=== PATIENT | male | born 1990 | race Caucasian/White ===

== ENCOUNTER → 2018-03-06 14:06 | Outpatient (CLI) | payer MEDICARE, MEDICAID, SELFPAY ==
[2018-03-06 15:02] LABS: Basophils # 0.1 K/mm3 (0-0.2); Basophils % 0.8 % (0.1-2.0); Eosinophils # 0.3 K/mm3 (0.0-0.4); Eosinophils % 3.2 % (0.1-12.0); Hematocrit 49.3 % (42.0-52.0); Hemoglobin 15.9 g/dL (14.1-18.0); Lymphocytes # 2.4 K/mm3 (0.7-4.5); Lymphocytes % 24.4 K/mm3 (10-50); Mean Corpuscular HGB Conc 32.2 g/dL (31.8-35.4); Mean Corpuscular Hemoglobin 28.6 pg (27.0-31.2); Mean Corpuscular Volume 88.8 fl (80-94); Mean Platelet Volume 8.6 fl (7.4-10.4); Monocytes # 0.5 K/mm3 (0.1-1.0); Monocytes % 4.7 % (1.7-9.3); Neutrophils # 6.6 K/mm3 (1.8-7.8); Neutrophils % 66.9 % (37.0-80.0); Platelet Count 290 K/mm3 (142-424); Red Blood Count 5.55 M/mm3 (4.60-6.20); Red Cell Distribution Width 11.7 % (11.5-17.5); White Blood Count 9.9 K/mm3 (4.8-10.8)
[2018-03-06 15:10] LABS: Hemoglobin A1C 5.2 % (0.0-7.0)
[2018-03-06 15:18] LABS: Alanine Aminotransferase 17 U/L (12-78); Albumin/Globulin Ratio 1.1 (1.1-1.8); Alkaline Phosphatase 74 U/L (46-116); Anion Gap 9.1 mEq/L (5-15); Aspartate Amino Transferase 15 U/L (15-37); Bilirubin,Total 0.9 mg/dL (0.2-1.0); Blood Urea Nitrogen 5 mg/dL (7-18); Calcium 9.4 mg/dL (8.5-10.1); Carbon Dioxide 31 mmol/L (21.0-32.0); Chloride 105 mmol/L (98-107); Chol/HDL Ratio 5.5 (1-3.5); Cholesterol 215 mg/dL (140-200); Estimated Glomerular Filt Rate 118 ml/min (>60); GFR (African American) 143 ML/MIN (>60); Globulin 3.8 gm/dl (1.3-3.2); Glucose 99 mg/dL (74-106); HDL Cholesterol 39 mg/dL (27-67); LDL Cholesterol 140 mg/dL (0-130); Potassium 4.1 mmoL/L (3.5-5.1); Sodium 141 mmol/L (136-145); Thyroid Stimulating Hormone 1.08 uIU/ml (0.358-3.740); Total Protein,Serum 7.8 gm/dL (6.4-8.2); Triglycerides 180 mg/dL (30-200); VLDL Cholesterol 36 mg/dL (0-40)
[2018-03-08 17:15] LABS: Prolactin 22.4 ng/mL (4.0-15.2)
== END ==
PROVIDERS: Visit Provider Nurse Practitioner Psychiatric/Mental Health
DX: F34.9 Persistent mood [affective] disorder, unspecified (principal); Z79.899 Other long term (current) drug therapy
CPT/HCPCS: 36415; 80053; 80061; 83036; 84146; 84443; 85025

== ENCOUNTER → 2019-05-14 10:56 | Outpatient (CLI) | payer MEDICARE, OTHER, MEDICAID, SELFPAY ==
[2019-05-14 11:32] LABS: Basophils # 0.1 K/mm3 (0-0.2); Basophils % 0.8 % (0.1-2.0); Eosinophils # 0.3 K/mm3 (0.0-0.4); Eosinophils % 3.3 % (0.1-12.0); Hematocrit 49.7 % (42.0-52.0); Hemoglobin 15.8 g/dL (14.1-18.0); Lymphocytes # 2.7 K/mm3 (0.7-4.5); Lymphocytes % 31.4 % (10-50); Mean Corpuscular HGB Conc 31.9 g/dL (31.8-35.4); Mean Corpuscular Hemoglobin 29.1 pg (27.0-31.2); Mean Corpuscular Volume 91.2 fl (80-94); Mean Platelet Volume 7.5 fl (7.4-10.4); Monocytes # 0.4 K/mm3 (0.1-1.0); Monocytes % 4.9 % (1.7-9.3); Neutrophils # 5.1 K/mm3 (1.8-7.8); Neutrophils % 59.5 % (37.0-80.0); Platelet Count 293 K/mm3 (142-424); Red Blood Count 5.45 M/mm3 (4.60-6.20); Red Cell Distribution Width 12.4 % (11.5-17.5); White Blood Count 8.5 K/mm3 (4.8-10.8)
[2019-05-14 12:08] LABS: Alanine Aminotransferase 15 U/L (12-78); Albumin Level 3.7 gm/dL (3.4-5.0); Alkaline Phosphatase 75 U/L (46-116); Anion Gap 9.4 mEq/L (5-15); Aspartate Amino Transferase 13 U/L (15-37); Bilirubin,Total 0.6 mg/dL (0.2-1.0); Blood Urea Nitrogen 6 mg/dL (7-18); Calcium 9.4 mg/dL (8.5-10.1); Carbon Dioxide 33 mmol/L (21.0-32.0); Chloride 103 mmol/L (98-107); Chol/HDL Ratio 6.2 (1-3.5); Cholesterol 235 mg/dL (140-200); Creatinine,Serum 0.81 mg/dL (0.70-1.30); Estimated Glomerular Filt Rate 115 ml/min (>60); Free Thyroxine Index 3.1 ug/dL (5.93-13.13); GFR (African American) 139 ML/MIN (>60); Globulin 3.8 gm/dl (1.3-3.2); Glucose 93 mg/dL (74-106); HDL Cholesterol 38 mg/dL (27-67); LDL Cholesterol 164 mg/dL (0-130); Potassium 4.4 mmoL/L (3.5-5.1); Sodium 141 mmol/L (136-145); T4 (Thyroxine) 9.3 ug/dl (4.7-13.3); Total Protein,Serum 7.5 gm/dL (6.4-8.2); Triglycerides 163 mg/dL (30-200); Triiodothryronine (T3) Uptake 33 % (31-39); VLDL Cholesterol 33 mg/dL (0-40)
[2019-05-16 04:19] LABS: Prolactin 19.9 ng/mL (4.0-15.2)
== END ==
PROVIDERS: Visit Provider Nurse Practitioner Psychiatric/Mental Health
DX: F34.81 Disruptive mood dysregulation disorder (principal); F70 Mild intellectual disabilities; Z79.899 Other long term (current) drug therapy
CPT/HCPCS: 36415; 80053; 80061; 84146; 84436; 84443; 84479; 85025

== ENCOUNTER 2019-12-13 14:49 | Emergency (ER) | payer MEDICARE, MEDICAID, SELFPAY ==
[2019-12-13 14:59] VITALS: BP 161/104; PULSE 78; RESP 18; TEMP 36.9; O2SAT 98; BMI 39.1
[2019-12-13 15:14] VITALS: BP 161/104; PULSE 73; RESP 18; TEMP 36.9; O2SAT 98
--- NOTE | 2019-12-13 15:14 | HMH.COUGH ---
Cough Clinic HPI - History of Present Illness Complaint:: 1 week of cough, occasionally productive of yellow sputum. Has no fever. No dyspnea. No wheezing. Has a history of asthma, has not been taking allergy medicine. Onset (ago): week(s) Home Medications: Home Medications Medication Instructions Recorded Confirmed Type Ondansetron [Zofran 4mg ODT] 4 mg PO Q8HP PRN #12 tab.rapdis 07/17/19 Rx Loratadine [Allergy Relief] 10 mg PO DAILY #30 tab 12/13/19 Rx risperiDONE [Risperidone] 0.5 mg PO BID 12/13/19 12/13/19 History Allergies/Adverse Reactions: Allergies Allergy/AdvReac Type Severity Reaction Status Date / Time No Known Allergies Allergy Verified 12/13/19 15:02 Cough Clinic Triage - Symptoms Fever History: No Chills: No Myalgia: No Nasal Drainage: No Sore Throat: No Productive Cough: Yes (yellow) Non-productive Cough: No Ear or Sinus Pain: No Joint Pain: No Chest Pain: No Rash: No Shortness of Breath: No Nausea or Vomitting: No Headache: No Abdominal Pain: No Diarrhea: No - Exposure History Foreign Travel: No Direct Contact with COVID-19 Patient: No - Risk Factors Greater than 60 Years Old: No COPD: No (asthma) Diabetes: No Heart Disease: No Home Oxygen Use: No Chronic Renal Disease: No Chronic Liver Disease: No Neurologic/Neurodevelopmental/intellectual disability: Yes Current Smoker: No Former Smoker: No Cough [facility] History I have reviewed the patient's past medical history: Yes - Social History Alcohol Intake: never Occupational Status: other Housing: house ROS Obtained: Yes All systems reviewed & no additional complaints [facility] Exam - General General appearance: alert, in no apparent distress - Head Head exam: atraumatic, normocephalic, normal inspection - Eye Eye exam: Present: normal appearance, PERRL, EOMI - ENT ENT exam: Present: normal exam, normal oropharynx, mucous membranes moist, TM's normal bilaterally, normal external ear exam - Neck Neck exam: Present: normal inspection, full ROM, trachea midline. Absent: meningismus, lymphadenopathy - Chest Chest inspection: Present: normal inspection, symmetric chest wall rise. Absent: tenderness - Respiratory Respiratory exam: Present: normal lung sounds bilaterally. Absent: respiratory distress - Cardiovascular Cardiovascular exam: Present: regular rate, normal rhythm. Absent: JVD - Extremities Exam Extremities exam: Present: normal inspection, full ROM, normal capillary refill. Absent: calf tenderness - Neurological Exam Neurological exam: Present: alert, oriented X3 - Skin Skin exam: Present: warm, dry, intact, normal color - Lymphatic Lymphatic Findings: no adenopathy Cough Clinic MDM - Medical Records Medical records reviewed: Yes: I reviewed the patient's medical records. Vital Signs: 12/13/19 14:59 Temperature 98.4 F Temperature Source Oral Pulse Rate [Right Brachial] 78 Respiratory Rate 18 Blood Pressure [Right Arm] 161/104 H Blood Pressure Mean [Right Arm] 123 Blood Pressure Position [Right Arm] Sitting 02 Sat by Pulse Oximetry 98 Oxygen Delivery Method Room Air Cough [facility] Disposition Clinical Impression: Allergic rhinitis Disposition: Home, Self-Care Prescriptions: Loratadine [Allergy Relief] 10 mg PO DAILY #30 tab Transmission Status: Pending to [facility] Referrals: Juan Ramirez MD [Primary Care Provider] -
== END 2019-12-13 15:21 | disposition home or self-care (01) ==
PROVIDERS: Emergency Provider Internal Medicine Adolescent Medicine; PCP Internal Medicine Adolescent Medicine
DX: J30.2 Other seasonal allergic rhinitis (principal)
CPT/HCPCS: 99201; 99212

== ENCOUNTER → 2021-08-20 08:14 | Outpatient (CLI) | payer MEDICARE, MEDICAID, SELFPAY ==
[2021-08-20 08:55] LABS: Basophils # 0.1 K/mm3 (0-0.2); Basophils % 1.3 % (0.1-2.0); Eosinophils # 0.2 K/mm3 (0.0-0.4); Eosinophils % 3.1 % (0.1-12.0); Hematocrit 47.5 % (42.0-52.0); Hemoglobin 16.5 g/dL (14.1-18.0); Lymphocytes # 2.4 K/mm3 (0.7-4.5); Lymphocytes % 30.9 % (10-50); Mean Corpuscular HGB Conc 34.8 g/dL (31.8-35.4); Mean Corpuscular Hemoglobin 30.9 pg (27.0-31.2); Mean Corpuscular Volume 88.9 fl (80-94); Mean Platelet Volume 8.3 fl (7.4-10.4); Monocytes # 0.5 K/mm3 (0.1-1.0); Monocytes % 6.3 % (1.7-9.3); Neutrophils # 4.6 K/mm3 (1.8-7.8); Neutrophils % 58.4 % (37.0-80.0); Platelet Count 304 K/mm3 (142-424); Red Blood Count 5.34 M/mm3 (4.60-6.20); Red Cell Distribution Width 12.6 % (11.5-17.5); White Blood Count 7.9 K/mm3 (4.8-10.8)
[2021-08-20 09:31] LABS: Chloride 101 mmol/L (98-107); Potassium 4.6 mmoL/L (3.5-5.1); Sodium 141 mmol/L (136-145)
[2021-08-20 09:33] LABS: Alanine Aminotransferase 12 U/L (12-78); Alkaline Phosphatase 61 U/L (38-126); Aspartate Amino Transferase 25 U/L (17-59); Blood Urea Nitrogen 7 mg/dl (9-20); Estimated Glomerular Filt Rate 115 ml/min (>60); GFR (African American) 139 ML/MIN (>60)
[2021-08-20 09:34] LABS: Albumin Level 4.3 g/dl (3.5-5.0); Albumin/Globulin Ratio 1.3 (1.1-1.8); Anion Gap 11.6 mEq/L (5-15); Calcium 9.1 mg/dl (8.4-10.2); Carbon Dioxide 33 mmol/L (22.0-30.0); Chol/HDL Ratio 3.8 (1-3.5); Cholesterol 200 mg/dl (140-200); Globulin 3.2 g/dL (1.3-3.2); Glucose 92 mg/dl (74-100); HDL Cholesterol 52 mg/dl (40-60); Total Protein,Serum 7.5 g/dl (6.3-8.2); Triglycerides 108 mg/dl (30-150); VLDL Cholesterol 22 mg/dL (0-40)
[2021-08-20 10:05] LABS: Thyroid Stimulating Hormone 2.75 uIU/mL (0.465-4.68)
[2021-08-21 09:29] LABS: Prolactin 15.2 ng/mL (4.0-15.2)
== END ==
PROVIDERS: Visit Provider Nurse Practitioner Psychiatric/Mental Health
DX: F39 Unspecified mood [affective] disorder (principal); Z79.899 Other long term (current) drug therapy
CPT/HCPCS: 36415; 80053; 80061; 84146; 84443; 85025

== ENCOUNTER 2021-11-23 11:03 | Emergency (ER) | payer MEDICARE, MEDICAID, SELFPAY ==
[2021-11-23 12:25] VITALS: BP 121/74; PULSE 80; RESP 19; TEMP 36.8; O2SAT 98; BMI 28.8
--- NOTE | 2021-11-23 12:40 | HMH.EDUTC ---
[facility] [place] Clinical Impression: Influenza A Disposition: Home, Self-Care Condition on Discharge: Good Instructions: Influenza, DI for Influenza -- Adult Additional Instructions: Drink plenty of fluids. Take tylenol or ibuprofen for pain or fever. Take the medications as directed. Follow up with your regular doctor. GO TO THE ER FOR ANY WORSENING SYMPTOMS Prescriptions: Ondansetron [Zofran 4mg ODT] 4 mg PO Q8HP PRN #20 tab PRN Reason: Nausea Transmission Status: Received by [facility] Benzonatate [Benzonatate 100mg cap] 100 mg PO TIDP PRN #30 cap PRN Reason: Cough Transmission Status: Received by [facility] Oseltamivir Phosphate [Tamiflu 75mg Capsule] 75 mg PO BID #10 cap Transmission Status: Received by [facility] Referrals: Juan Ramirez MD [Primary Care Provider] - Forms: Work/School Release Time of Disposition: 12:48 Medical Decision Making - Medical Records Medical records reviewed: No: I reviewed the patient's medical records. - Eleuterio Inquiry Pt receiving controlled substance: No Vital Signs: 11/23/21 12:25 11/23/21 12:58 Temperature 98.3 F 98.3 F Temperature Source Oral Pulse Rate 80 Pulse Rate [Right Brachial] 80 Respiratory Rate 19 19 Blood Pressure 121/74 Blood Pressure [Right Arm] 121/74 Blood Pressure Mean [Right Arm] 89 Blood Pressure Source [Right Arm] Automatic Cuff Blood Pressure Position [Right Arm] Sitting 02 Sat by Pulse Oximetry 98 Oxygen Delivery Method Room Air - Lab Data Lab results reviewed: Yes: I reviewed the patient's lab results. Lab Results 11/23/21 12:44: Influenza Type A Ag Positive A, Influenza Type B Ag Negative [facility] [place] - General Stated complaint: congestion, cough, fever Time Seen by Provider: 11/23/21 12:40 Mode of Arrival: Ambulatory Source of Information: Patient Limitations: No Limitations Description of Symptoms (Recalled from Triage Doc. by RN): PATIENT C/O CONGESTION, COUGH, AND FEVER SINCE FRIDAY HEENT Symptoms (Recalled from RN notes): Yes Resp Symptoms (Recalled from RN notes): Yes Skin Symptoms (Recalled from RN notes): No MS Symptoms (Recalled from RN notes): No Functional Status (Recalled from RN notes): WNL - History of Present Illness Provider Complaint: He states that the has had cough, congestion, fever, chills and body aches for the past 2 to 3 days. - Related Data Home Medications Medication Instructions Recorded Confirmed risperiDONE [Risperidone] 0.5 mg PO BID 12/13/19 12/13/19 Previous Rx's Medication Instructions Recorded Ondansetron [Zofran 4mg ODT] 4 mg PO Q8HP PRN #12 tab.rapdis 07/17/19 Loratadine [Allergy Relief] 10 mg PO DAILY #30 tab 12/13/19 Benzonatate [Benzonatate 100mg 100 mg PO TIDP PRN #30 cap 11/23/21 cap] Ondansetron [Zofran 4mg ODT] 4 mg PO Q8HP PRN #20 tab 11/23/21 Oseltamivir Phosphate [Tamiflu 75 mg PO BID #10 cap 11/23/21 75mg Capsule] Allergies Allergy/AdvReac Type Severity Reaction Status Date / Time No Known Allergies Allergy Verified 12/13/19 15:02 - Worker's Comp Is this a Worker's Comp case?: No [facility] History - Hepatitis A Screen Drug use history?: No High risk sexual behaviors?: No History of sexually transmitted infection?: No Currently employed?: No Childcare worker?: No Do you have indoor plumbing?: Yes Do you have electricity?: Yes Attestation statement:: This patient has been screened for Hepatitis A risk factors. I have reviewed the patient's past medical history: Yes - Social History Alcohol Intake: never Occupational Status: other Housing: house ROS Obtained: Yes All systems reviewed & no additional complaints - Constitutional Constitutional: Reports as per HPI - Eyes Eyes: Denies eye discharge - ENT Ears, Nose, Mouth, and Throat: Reports as per HPI - Cardiovascular Cardiovascular: Denies chest pain - Respiratory Respiratory: Reports ch
[2021-11-23 12:44] LABS: UTC Influenza A Antigen Positive (Negative); UTC Influenza B Antigen Negative (Negative)
[2021-11-23 12:58] VITALS: BP 121/74; PULSE 80; RESP 19; TEMP 36.8; O2SAT 98
== END 2021-11-23 13:01 | disposition home or self-care (01) ==
PROVIDERS: Emergency Provider Nurse Practitioner Family; PCP Internal Medicine Adolescent Medicine
DX: J10.1 Influenza due to other identified influenza virus with other respiratory manifestations (principal)
CPT/HCPCS: G0463; 87804; 99212

== ENCOUNTER 2023-10-11 11:43 | Outpatient (CLI) | payer MEDICARE, MEDICAID, SELFPAY ==
[2023-10-11 11:53] LABS: MANUAL DIFFERENTIAL MANUAL DIFFERENTIAL (MANUAL DIFF)
[2023-10-11 12:09] LABS: Basophils # 0.1 K/mm3 (0-0.2); Basophils % 0.7 % (0.1-2.0); Eosinophils # 0.1 K/mm3 (0.0-0.4); Eosinophils % 1.9 % (0.1-12.0); Hematocrit 49.6 % (42.0-52.0); Hemoglobin 16.8 g/dL (14.1-18.0); Lymphocytes # 2.5 K/mm3 (0.7-4.5); Lymphocytes % 34.6 % (10-50); Mean Corpuscular HGB Conc 33.9 g/dL (31.8-35.4); Mean Corpuscular Hemoglobin 30.7 pg (27.0-31.2); Mean Corpuscular Volume 90.7 fl (80-94); Monocytes # 0.5 K/mm3 (0.1-1.0); Monocytes % 6.2 % (1.7-9.3); Neutrophils # 4.1 K/mm3 (1.8-7.8); Neutrophils % 56.5 % (37.0-80.0); Platelet Count 261 K/mm3 (142-424); Red Blood Count 5.47 M/mm3 (4.60-6.20); Red Cell Distribution Width 12.4 % (11.5-17.5); White Blood Count 7.3 K/mm3 (4.8-10.8)
[2023-10-11 13:05] LABS: Chloride 104 mmol/L (98-107); Potassium 4.9 mmoL/L (3.5-5.1); Sodium 140 mmol/L (136-145)
[2023-10-11 13:07] LABS: Alanine Aminotransferase 13 U/L (12-78); Aspartate Amino Transferase 26 U/L (17-59); Bilirubin,Total 0.9 mg/dl (0.2-1.3); Blood Urea Nitrogen 7 mg/dl (9-20); Estimated Glomerular Filt Rate 113 ml/min (>60); GFR (African American) 136 ML/MIN (>60)
[2023-10-11 13:08] LABS: Albumin Level 4.3 g/dl (3.5-5.0); Albumin/Globulin Ratio 1.3 (1.1-1.8); Alkaline Phosphatase 65 U/L (38-126); Anion Gap 10.9 mEq/L (5-15); Calcium 9.5 mg/dl (8.4-10.2); Carbon Dioxide 30 mmol/L (22.0-30.0); Chol/HDL Ratio 4.4 (1-3.5); Cholesterol 201 mg/dl (140-200); Globulin 3.2 g/dL (1.3-3.2); Glucose 99 mg/dl (74-100); HDL Cholesterol 46 mg/dl (40-60); Total Protein,Serum 7.5 g/dl (6.3-8.2); Triglycerides 95 mg/dl (30-150); VLDL Cholesterol 19 mg/dL (0-40)
[2023-10-11 13:19] LABS: Direct LDL Cholesterol 109.46 mg/dL (100-129)
[2023-10-11 13:33] LABS: Eosinophils % 1 % (0-3); Lymphocytes % 38 % (10-50); Monocytes % 7 % (2-9); Neutrophils % 54 % (42-76); Platelet Estimate Normal; RBC Morphology Normal; Total Cells Counted 100
[2023-10-11 13:39] LABS: Thyroid Stimulating Hormone 1.08 uIU/mL (0.465-4.68)
[2023-10-12 08:26] LABS: Prolactin 13.7 ng/mL (3.9-22.7)
== END 2023-10-11 23:59 ==
PROVIDERS: PCP Internal Medicine Adolescent Medicine; Visit Provider Nurse Practitioner Psychiatric/Mental Health
DX: F39 Unspecified mood [affective] disorder (principal); Z79.899 Other long term (current) drug therapy
CPT/HCPCS: 36415; 80053; 80061; 84146; 84443; 85007; 85014; 85018; 85048; 85049

== ENCOUNTER 2023-10-19 16:53 | Emergency (ER) | payer MEDICARE, MEDICAID, SELFPAY ==
[2023-10-19 17:30] VITALS: BP 144/88; PULSE 78; RESP 18; TEMP 37.4; O2SAT 100; BMI 26.9
--- NOTE | 2023-10-19 17:51 | EXP.UTC ---
Discharge Plan Disposition Patient Disposition: Home, Self-Care Condition: Good Prescriptions Prescriptions: New pseudoephedrine HCl [Sudafed 12 Hour] 120 mg tablet extended release 120 mg PO Q12H PRN (Reason: nasal congestion) Qty: 12 0RF benzonatate 100 mg capsule 100 mg PO TID PRN (Reason: cough) Qty: 30 0RF No Action risperidone 0.5 MG tablet 0.5 mg PO BID loratadine 10 MG tablet 10 mg PO DAILY Qty: 30 2RF Referrals Follow up/Referrals: Juan Ramirez MD [Primary Care Provider] - See instructions Activity Restrictions/Add. Instructions Additional Instructions/Restrictions: *Monitor Temp, Over the counter Motrin or Tylenol as directed/as needed Tylenol every 4 hours and Motrin every 6 hours (as long as your family doctor has told you that you can take it) for fever or pain. and straight to ER if unable to lower temp less than 101.0 after medication given *Warm salt water gargles may help to soothe the throat *Throat Lozenges? *Warm fluids like tea with honey may help to soothe the throat? *Sleep elevated *Humidifier/Vaporizer Your throat swab was sent for culture. Those results are typically sent to your primary care. Be sure to follow up in 2-3 days with your family doctor/primary care physician if no improvement so they can review those result and treat if necessary. If you don?t have a primary care doctor, I recommend you get one but in the mean time, you will have to return to a walk in clinic Follow up IMMEDIATELY for new or worsening symptoms or no Noticeable improvement over the next 48-72 hours. 911 for difficulty breathing or swallowing Clinical Impressions Clinical Impression: Viral syndrome Stand Alone Forms Stand Alone Forms: Work/School Release Instructions Patient Instructions: DI for Viral Syndrome Discharge ED Provider: Marisol Crawford [facility] [place] HPI General Stated complaint: Congestion , runny nose, cough , sinus pressure Mode of Arrival: Ambulatory Source of Information: Patient Limitations: No Limitations Time Seen by Provider: 10/19/23 17:51 Description of Symptoms (Recalled from Triage Doc. by RN): Pt's symptoms are cough, congestion, runny nose, sinus pressure, and fever. HEENT Symptoms (Recalled from RN notes): Yes Resp Symptoms (Recalled from RN notes): No Skin Symptoms (Recalled from RN notes): No MS Symptoms (Recalled from RN notes): No Functional Status (Recalled from RN notes): n/a History of Present Illness Provider Complaint: Patient states that he has been having sinus pain and pressure with sore throat for several days States that today he was feeling worse so he came in to get checked worried that he may have strep throat or something Related Data Home Medications Medication Instructions Recorded Confirmed risperidone 0.5 mg tablet 0.5 mg PO BID Anxiety 12/13/19 10/19/23 Previous Rx's Medication Instructions Recorded loratadine 10 mg tablet 10 mg PO DAILY #30 tabs 12/13/19 benzonatate 100 mg capsule 100 mg PO TID PRN cough #30 caps 10/19/23 pseudoephedrine HCl 120 mg 120 mg PO Q12H PRN nasal 10/19/23 tablet,extended release (Sudafed congestion #12 tabs 12 Hour) Allergies Allergy/AdvReac Type Severity Reaction Status Date / Time No Known Allergies Allergy Verified 10/19/23 17:52 Worker's Comp Is this a Worker's Comp case?: No [facility] [place] Dis[facility]: The information contained in this section may have been updated after the patient was seen, as this information can be updated by other users. Social History Smoking Status: Unknown if ever smoked alcohol intake: never current occupational status: other Travel in the last 8 weeks: None housing: house ROS Obtained: Yes All systems reviewed & no additional complaints except as documented and Yes Systems reviewed as appropriate & no additional complaints except as documented Constitutional Constitutional: Reports system reviewed and no additional complaints, except as documented and Reports as per HPI ENT Ears, Nose, Mouth, and Throat: Reports system reviewed and no additional complaints, except as documented, Reports as per HPI, Reports sinus pain, Reports sinus pressure and Reports sore throat Cardiovascular Cardiovascular: Reports system reviewed and no additional complaints, except as documented and Reports as per HPI Respiratory Respiratory: Reports system reviewed and no additional complaints, except as documented and Reports as per HPI Gastrointestinal Gastrointestingal: Reports system reviewed and no additional complaints, except as documented and as per HPI Physical Exam General General appearance: alert and in no apparent distress ENT ENT exam: Present mucous membranes moist Expanded ENT Exam Nose exam: Present sinus tenderness Throat exam: Present tonsillar erythema Respiratory Respiratory exam: Present normal lung sounds bilaterally; Absent respiratory distress or wheezes Cardiovascular Cardiovascular exam: Present regular rate, normal rhythm and normal heart sounds Abdominal Exam Abdominal exam: Present soft and normal bowel sounds; Absent distention or tenderness Neurological Exam Neurological exam: Present alert, oriented X3 and normal gait Medical Decision Making Eleuterio Inquiry Pt receiving controlled substance: No Eleuterio was queried for this patient: No Vital Signs: 10/19/23 17:30 Temperature 99.3 F Temperature Source Oral Pulse Rate [Right Radial] 78 Respiratory Rate 18 Blood Pressure [Right Arm] 144/88 H Blood Pressure Mean [Right Arm] 106 Blood Pressure Source [Right Arm] Automatic Cuff Blood Pressure Position [Right Arm] Sitting 02 Sat by Pulse Oximetry 100 Oxygen Delivery Method Room Air Lab Data Lab results reviewed: Yes I reviewed the patient's lab results.
[2023-10-19 18:05] LABS: UTC Influenza A Antigen Negative (Negative); UTC Influenza B Antigen Negative (Negative)
[2023-10-19 18:05] LABS: UTC Strep Screen (Rapid) Negative (Negative)
[2023-10-19 18:16] VITALS: BP 144/88; PULSE 78; RESP 18; TEMP 37.4; O2SAT 100
== END 2023-10-19 18:16 | disposition home or self-care (01) ==
PROVIDERS: Emergency Provider Nurse Practitioner; PCP Internal Medicine Adolescent Medicine
DX: R09.81 Nasal congestion (principal); R07.0 Pain in throat; R05.9 Cough, unspecified; B34.9 Viral infection, unspecified
CPT/HCPCS: 87804; 87880; 99212; 99214; G0463

== ENCOUNTER 2025-06-21 08:20 | Outpatient (CLI) | payer MEDICARE, SELFPAY ==
[2025-06-21 09:13] LABS: Hematocrit 46.1 % (42.0-52.0); Hemoglobin 15.4 g/dL (14.1-18.0); Immature Granulocytes % 0.4 %; Mean Corpuscular HGB Conc 33.4 g/dL (31.8-35.4); Mean Corpuscular Hemoglobin 30.1 pg (27.0-31.2); Mean Corpuscular Volume 90.2 fl (80-94); Nucleated Red Blood Cells % 0 %; Platelet Count 246 K/mm3 (142-424); Red Blood Count 5.11 M/mm3 (4.60-6.20); Red Cell Distribution Width-SD 37.3 fL; White Blood Count 7.3 K/mm3 (4.8-10.8)
[2025-06-21 09:50] LABS: Albumin Level 3.9 g/dl (3.5-5.0); Chloride 101 mmol/L (98-107)
[2025-06-21 09:51] LABS: Sodium 139 mmol/L (136-145)
[2025-06-21 09:53] LABS: Alanine Aminotransferase 9 U/L (12-78); Aspartate Amino Transferase 22 U/L (17-59); Blood Urea Nitrogen 10 mg/dl (9-20); Carbon Dioxide 31 mmol/L (22.0-30.0); Creatinine,Serum 0.80 mg/dl (0.66-1.25); Estimated Glomerular Filt Rate 112 ml/min (>60); GFR (African American) 136 ML/MIN (>60)
[2025-06-21 09:54] LABS: Albumin/Globulin Ratio 1.1 (1.1-1.8); Alkaline Phosphatase 73 U/L (38-126); Anion Gap 11.9 mEq/L (5-15); Bilirubin,Total 0.8 mg/dl (0.2-1.3); Calcium 9.0 mg/dl (8.4-10.2); Cholesterol 205 mg/dl (140-200); Globulin 3.4 g/dL (1.3-3.2); Glucose 94 mg/dl (74-100); HDL Cholesterol 45 mg/dl (40-60); Potassium 4.9 mmoL/L (3.5-5.1); Total Protein,Serum 7.3 g/dl (6.3-8.2); Triglycerides 105 mg/dl (30-150)
[2025-06-21 10:23] LABS: Thyroid Stimulating Hormone 2.80 uIU/mL (0.465-4.68)
== END 2025-06-21 23:59 | disposition home or self-care (01) ==
LOC: LAB 08:23
PROVIDERS: PCP Internal Medicine Adolescent Medicine; Visit Provider Nurse Practitioner Psychiatric/Mental Health
DX: F39 Unspecified mood [affective] disorder (principal); Z79.899 Other long term (current) drug therapy
CPT/HCPCS: 36415; 80053; 80061; 84146; 84443; 85025